=== PATIENT | female | born 1955 | race Caucasian/White ===

== ENCOUNTER 2016-05-31 20:57 | Emergency (ER) | payer OTHER ==
--- NOTE | ~2016-05-31 | CT4 ---
[facility] A Service of [facility] RADIOLOGY TEXT RESULTS PATIENT: ISHAAN JAIMES LOCATION: [facility] : 55 UNIT #: [id number] AGE: [address]: Antonino Chavira MD SEX: F ORDER DR: [id number] [facility] [address] [place], [place] [address] [id number] MR#: [id number] Acc #: [id number] NAME: ISHAAN JAIMES : 1955 SEX: F STUDY DATE/TIME: 05/31/2016 21:32 UNIT: [facility] ROOM: STUDY DESCRIPTION: CT Abd and Pelv Wo Cont Attending Physician: Antonino Chavira M.D. Referring Physician: Jerald Persaud M.D. Ordering Physician: Antonino Chavira M.D. Primary Care Physician: Jerald Persaud M.D. MEDICAL IMAGING REPORT This report is preliminary unless electronic signature is present EXAM CT abdomen and pelvis without contrast HISTORY Generalized abdominal pain for 5 days. History of diabetes. TECHNIQUE Axial images form through the abdomen and pelvis without contrast. Multiplanar reconstructed images reviewed at a workstation. This CT exam was performed with one or more of the following radiation dose reduction techniques: automatic exposure control, adjustment of mA and/or kV according to patient size, and iterative reconstruction. FINDINGS ABDOMEN: Lung bases unremarkable, except for right lower lobe granuloma. The liver, spleen, gallbladder, pancreas, kidneys and adrenal glands unremarkable. No free air or free fluid. Visualized GI tract, to include the appendix, normal. Retroperitoneum unremarkable, except mild atherosclerotic changes. PELVIS: Bladder, uterus and adnexa appear normal. Osseous structures remarkable for L5-S1 degenerative disc changes. IMPRESSION No acute intraabdominal or intrapelvic pathology on this unenhanced study. Dictated by.Warren Mayers M.D. [facility] A Service of [facility] RADIOLOGY TEXT RESULTS PATIENT: ISHAAN JAIMES LOCATION: [facility] : 55 UNIT #: [id number] AGE: [address]: Antonino Chavira MD SEX: F ORDER DR: THIS IS AN ELECTRONICALLY VERIFIED REPORT Edelmira Mayers M.D. at 06/01/2016 2:04 PM SHARON/justa TD: 05/31/2016 22:41 JOB #: [id number] MEDICAL IMAGING REPORT Page 1 of 1 COPY
[2016-05-31 19:32] LABS: BASOPHIL# 0.1 X10e3 (0-0.3); BASOPHIL% 0.5 % (0-2.5); EOSINOPHIL# 0.2 X10e3 (0-0.7); EOSINOPHIL% 1.7 % (0.0-7.0); HEMATOCRIT 36.6 % (35.0-45.0); HEMOGLOBIN 12.1 gm/dL (12.0-16.0); LYMPHOCYTE% 20.6 % (17.0-45.0); MEAN CELL VOLUME 87.6 FL (83-96); MEAN CORPUSCULAR HGB CONC 33.1 g/dL (30-36); MEAN PLATELET VOLUME 8.1 FL (6.5-11.5); MONOCYTE# 1.6 X10e3 (0-1.0); NEUTROPHIL# 5.8 X10e3 (1.5-7.1); NEUTROPHIL% 60.2 % (40-75); PLATELET COUNT 266 X10e3 (140-420); RED BLOOD COUNT 4.18 X10e (3.90-5.30); RED CELL DISTRIBUTION WIDTH 14.3 % (11.0-15.5); WHITE BLOOD COUNT 9.7 X10e3 (4.0-10.5)
[2016-05-31 19:33] LABS: DIFF IND NO
[2016-05-31 20:02] LABS: ALBUMIN SERUM 3.6 g/dL (3.5-5.0); BILIRUBIN, DIRECT 0.1 mg/dL (0.0-0.2); BILIRUBIN,INDIRECT 0.4 mg/dL (0.0-0.9); BILIRUBIN,TOTAL 0.5 mg/dL (0.2-2.0); BUN/CREATININE RATIO 12.85; CALCIUM SERUM 9.1 mg/dL (8.4-10.2); CREATININE SERUM 1.4 mg/dL (0.6-1.4); GLOM FILT RATE Estimated 40.4 mL/min (>60); POTASSIUM 4.9 mmol/L (3.5-5.1); PROTEIN TOTAL SERUM 8.8 g/dL (6.0-8.3)
[2016-05-31 21:24] LABS: URINE SOURCE CLEAN CATCH
[2016-05-31 21:27] LABS: URINE APPEARANCE TURBID; URINE BILIRUBIN NEG (NEG); URINE BLOOD 1+ (NEG); URINE COLOR YELLOW; URINE GLUCOSE NEG (NEG); URINE KETONE NEG (NEG); URINE LEUKOCYTE ESTERASE 3+ (NEG); URINE NITRATE NEG (NEG); URINE PH 5.5 (5-8); URINE PROTEIN TRACE (NEG); URINE UROBILINOGEN 0.2 MG/DL (NEG)
[2016-05-31 21:29] LABS: CULTURE INDICATED? YES; URINE BACTERIA AUWI 4+ (NEGATIVE); URINE SQUAMOUS EPITHELIAL CELL NONE SEEN /[HPF]; UWBCS1 AUWI INNUM (0-5)
== END 2016-05-31 23:10 | disposition home or self-care (01) ==
LOC: CED 20:57
DX: N30.00 Acute cystitis without hematuria (principal); E11.649 Type 2 diabetes mellitus with hypoglycemia without coma; I10 Essential (primary) hypertension; E78.5 Hyperlipidemia, unspecified; K21.9 Gastro-esophageal reflux disease without esophagitis
CPT/HCPCS: 36415; 74176; 80048; 80076; 81003; 82947; 83690; 85025; 87086; 87088; 87186; 96361; 96365; 96375; 99284; J0696; J2270; J2405